=== PATIENT | male | born 1950 | race African-American/Black ===

== ENCOUNTER 2017-04-06 10:15 | Inpatient (IN) | payer OTHER ==
[~2017-04-06] VITALS: Ht 175.3 cm; Wt 66.7 kg
[~2017-04-06 10:15] MED LIST: AMLO10TA2 PO; ASPI325T8 PO; ATOR10TA60 PO; BRIM5DRO2 OP; LISI40TA PO; fixodent
[2017-04-27] VITALS (7 sets, daily range): BP systolic 105–145; BP diastolic 58–78
[2017-04-27] MEDS ORDERED: TV=100ml MORPHINE 5 MG, KETOROLAC 30 MG, ROPIVacaine 0.5% PF 60 ML, EPINEPH... INT ART ONE ×5 (06:00)
[2017-04-27] MEDS ORDERED: IV RINGERS,LACTATED 1000ML 1,000 ML IV SCH (07:00)
[2017-04-27] MEDS ORDERED: ONDANSETRON PF 4 MG/2 ML VIAL. IV PRN (07:00)
[2017-04-27] MEDS ORDERED: HYDROmorphone 2 MG/ML VIAL IV PRN (07:00)
[2017-04-27] MEDS ORDERED: LIDOCAINE 1% 1 ML SYRINGE. ID PRN (07:00)
[2017-04-27] MEDS ORDERED: fentaNYL PF VIAL 100 MCG/2 ML VIAL IV PRN ×3 (07:00→10:30)
[2017-04-27] MEDS ORDERED: PROCHLORPERAZINE 10 MG/2 ML VIAL. IV PRN ×2 (07:00→10:30)
[2017-04-27] MEDS ORDERED: ROCURONIUM 50 MG/5 ML VIAL. ONE (10:17)
[2017-04-27] MEDS ORDERED: LIDOCAINE 2% PF Vial for OR 5 ML VIAL. ONE (10:17)
[2017-04-27] MEDS ORDERED: FAMOTIDINE 20 MG/2 ML VIAL ONE (10:17)
[2017-04-27] MEDS ORDERED: ONDANSETRON PF 4 MG/2 ML VIAL. ONE (10:17)
[2017-04-27] MEDS ORDERED: MIDAZOLAM HCL/PF 2 MG/2 ML VIAL. ONE (10:17)
[2017-04-27] MEDS ORDERED: PROPOFOL 20 ML IV ONE (10:17)
[2017-04-27] MEDS ORDERED: fentaNYL PF VIAL 100 MCG/2 ML VIAL ONE (10:17)
[2017-04-27] MEDS ORDERED: DEXAMETHASONE SOD PHOS 20 MG/5 ML VIAL. ONE (10:17)
--- NOTE | 2017-04-27 10:20 | PDOC ---
BRIEF OPERATIVE NOTE Date: Apr 27, 2017 Pre-Op Diagnosis R hip DJD Post-Op Diagnosis same Procedure Performed R WANDA Surgeon Eva Kenyon Anesthesia Type: General Blood Loss 100mL Complications none VANESSA LAKE II, MD Apr 27, 2017 10:20
[2017-04-27] MEDS ORDERED: HYDROcodone/APAP 7.5/325MG 1 TAB TABLET PO PRN (10:30)
[2017-04-27] MEDS ORDERED: ZOLPIDEM 5 MG TABLET. PO PRN (10:30)
[2017-04-27] MEDS ORDERED: ACETAMINOPHEN 325 MG TABLET. PO PRN (10:30)
[2017-04-27] MEDS ORDERED: MORPHINE SULFATE 2 MG/ML DISP.SYRIN. IV PRN (10:30)
[2017-04-27] MEDS ORDERED: oxyCODONE/APAP 7.5/325 1 TAB TABLET PO PRN (10:30)
[2017-04-27] MEDS ORDERED: oxyCODONE/APAP 5/325 1 TAB TABLET PO PRN (10:30)
[2017-04-27] MEDS ORDERED: MORPHINE SULFATE 4 MG/ML DISP.SYRIN. IV PRN ×2 (10:30)
[2017-04-27] MEDS ORDERED: METOCLOPRAMIDE HCL 10 MG/2 ML VIAL. IV PRN (10:30)
[2017-04-27] MEDS ORDERED: DEXTROSE 50% 25 GM / 50ML DISP.SYRIN. IV PRN (10:30)
[2017-04-27] MEDS ORDERED: diphenhydrAMINE 50 MG/ML VIAL IV PRN (10:30)
[2017-04-27] MEDS ORDERED: PROCHLORPERAZINE 5 MG TABLET. PO PRN (10:30)
[2017-04-27] MEDS ORDERED: 0.9 % SODIUM CHLORIDE 10 ML DISP.SYRIN. IV PRN (10:30)
[2017-04-27] MEDS ORDERED: HYDROcodone/APAP 10/325 1 TAB TABLET PO PRN (10:30)
[2017-04-27] MEDS ORDERED: MORPHINE SULFATE 10 MG/ML VIAL. IV PRN (10:30)
[2017-04-27] MEDS ORDERED: traMADol 50 MG TABLET PO PRN (10:30)
[2017-04-27] MEDS ORDERED: CALCIUM CARBONATE 500 MG TAB.CHEW PO PRN (10:30)
[2017-04-27] MEDS ORDERED: WARF-78 PO (10:39)
[2017-04-27] MEDS: HYDROcodone/APAP 7.5/325MG 1 TAB TABLET PO PRN ×2 (10:42→14:42)
[2017-04-27] MEDS: MELOXICAM 7.5 MG TABLET PO PRN ×2 (10:43→14:42)
[2017-04-27 11:00] LABS: INR 1.1 (0.8-1.1); PROTHROMBIN TIME PATIENT 13.3 SEC (11.7-14.0)
[2017-04-27] MEDS ORDERED: PHENYLEPHRINE in 0.9% NACL PF 1 MG/10 ML DISP.SYRIN. IV ONE (11:26)
[2017-04-27] MEDS ORDERED: GLYCOPYRROLATE 1 MG/5 ML VIAL. ONE (12:16)
[2017-04-27] MEDS ORDERED: NEOSTIGMINE METHYLSULFATE 5 MG/5 ML SYRINGE. ONE (12:17)
--- NOTE | 2017-04-27 12:39 | PDOC4 ---
Operative Note Operative Note Date of surgery 04/27/2017 Surgeon: Gilbert Lake MD Ship Worker: Linh Kenyon Preoperative diagnosis: Advanced right hip degenerative joint disease Postoperative diagnosis: Same Procedure: Right total hip arthroplasty Components inserted: [employer]oley [employer] Nephew 56 mm outer diameter shell, R3, size 7 high offset anthology stem, 40 mm Oxinium head, +0. Blood loss: 100 mL Complications: None Reason for procedure line is very pleasant 67-year-old gentleman who had seen development outpatient orthopedic surgery clinic. Clinical and radiographic evidence were consistent with the above preoperative diagnosis and after failure of conservative therapies including intra-articular corticosteroids, he we had a discussion of the risks benefits and alternatives to proceeding with the above surgery and he wished to have this performed. Graft description of procedure: Patient was greeted in the preoperative area by myself for the correct extremity was marked and verified. He was taken back to the operative suite and antibiotics were started and row. Once in the OR he had successful induction with general anesthetic. He was then laid in the lateral decubitus position with the right side up. All down pressure points were padded. An axillary roll was used. He was secured to the bed with her hip positioning device. We then proceeded to prep and drape right lower extremity and hip in her usual sterile fashion including an Ioban Hartwick. After this we conducted her standard preoperative timeout. I then palpated and marked her surface anatomy and made my standard posterolateral skin incision with a scalpel and dissected subcutaneous tissue down to the level fascia with electrocautery. Bleeding was cauterized as it was encountered. I then brought in a padded Leyva grain elevator agent place his knee on this and we incised fascia in line with the skin incision and then placed the Charnley retractor. After this I pushed bursal tissue posteriorly with a lap sponge identified the quadratus and piriformis and took these down off of the proximal femur. I take the piriformis. I then incised his hip capsule in a Z-plasty type incision and tag ends of this for later repair as well. I wasn't able to dislocate the femoral head and made remy with electrocautery a reproducible landmarks at the center of his head greater and lesser trochanters and made my measurements. I then palpated begin first lesser trochanter and made a electrocautery jovanna along his neck and then made my neck cut. I delivered the femoral head from the operative field. I placed my acetabular retractors and excised the soft tissues from the medial acetabulum. I then excised the labrum and removed some osteophytes from the posterior acetabulum. I used osteotome and Ronjair for this. After this I began reaming and reamed up to the above size then impacted my cup in a position after palpating for the greater sciatic notch. I then placed a single screw into his posterior column which had excellent purchase. Prior to impacting the cup, did irrigate out his acetabulum. I then irrigated out the cup again and placed my polyethylene and impacted in position confirming that it had seated and engaged under circumferential visualization. I then removed my acetabular retractors and delivered the proximal femur and the operative field by repositioning the leg and the assistance of a proximal femoral elevator. I then used my celeste cutting osteotome and canal finding reamer followed by my lateralizing reamer. I then used a chili pepper broach and broached up to the above size, initially stopped at a 6 but this did not restore his leg length adequately set one up to the 7. After this I trialed the standard and high offset and 0 and +4 combinations and felt the above combination gave the best stability and length. I then removed all trial components and irrigated out the canal and operative field and impacted my [address] and again re-trialed the head sizes and felt the +0 gave the best overall stability and leg length. I then washed and dried Deleon taper region after re-dislocating the hip and impacted my Oxinium ball into place. The hip was then reduced after the cup was washed and dried. With the hip reduced, I repaired the capsule with #2 Ethibond in a simple interrupted fashion. The piriformis was reapproximated through drill holes. I then injected my periarticular mixture into the donavan-incisional area. The fascia was then closed with running #2 Quill. Inverted interrupted 0 Vicryl was used for the deeper subcutaneous tissue and inverted interrupted 202 0 Vicryl for the more superficial subcutaneous tissues tissue. Running 4-0 Monocryl was used for skin. Prior to accomplishing wound closure all culture were reported as correct 2. No complications. Patient tolerated surgery well. At the conclusion of the surgery, he was laid gently supine and transferred supine to the hospital bed. He was taken to the PACU in stable and extubated condition. Postop plan is to admit him to the joint premont for care and observation as well as DVT and antibiotic prophylaxis. He will receive IV pain medicine as needed and physical and occupational therapy. GILBERT LAKE II, MD Apr 27, 2017 12:39
[2017-04-27] MEDS ORDERED: SEVOFLURANE > 120 MINUTES. IH ONE (12:41)
[2017-04-27] MEDS ORDERED: SEVOFLURANE 61 TO 120 MINUTES. IH ONE (12:41)
[2017-04-27] MEDS: SENNOSIDES/DOCUSATE 8.6/50MG TABLET. PO SCH (13:00)
[2017-04-27] MEDS: fentaNYL PF VIAL 100 MCG/2 ML VIAL IV PRN ×4 (13:00→13:38)
[2017-04-27] MEDS: MORPHINE SULFATE 2 MG/ML DISP.SYRIN. IV PRN ×2 (13:07→13:20)
--- NOTE | 2017-04-27 13:39 | RAD ---
Portable pelvis, 04/27/2017: History: Postop evaluation A right total hip prosthesis has been inserted in satisfactory position. There are streaky collections of gas in the soft tissues at the right hip on a postoperative basis. There is no evidence of a retained surgical instrument, needle or radiopaque sponge on this single view.
[2017-04-27] MEDS ORDERED: WARFARIN 7.5 MG TABLET. PO ONE (16:00)
[2017-04-27] MEDS: FERROUS SULFATE 325 MG TABLET. PO SCH (17:05)
[2017-04-27] MEDS: IV DEXTROSE 5 %-0.45 % NACL 1,000 ML IV SCH ×2 (17:05→20:16)
[2017-04-27] MEDS: CELECOXIB 200 MG CAPSULE. PO SCH (22:42)
[2017-04-27] MEDS: traMADol 50 MG TABLET PO PRN (22:43)
[2017-04-28 02:44] VITALS: BP 152/82
[2017-04-28] MEDS ORDERED: MAGNESIUM HYDROXIDE 2,400 MG/30 ML ORAL.SUSP. PO PRN (06:00)
[2017-04-28 06:22] LABS: HEMOGLOBIN 11.3 g/dL (13.0-17.5)
[2017-04-28 06:32] VITALS: BP 150/75
[2017-04-28 06:35] LABS: INR 1.2 (0.8-1.1); PROTHROMBIN TIME PATIENT 14.2 SEC (11.7-14.0)
[2017-04-28] MEDS: traMADol 50 MG TABLET PO PRN ×3 (08:07→21:07)
[2017-04-28] MEDS: MULTIVITAMIN with MINERAL TABLET. PO SCH (08:07)
[2017-04-28] MEDS: CELECOXIB 200 MG CAPSULE. PO SCH ×2 (08:07→21:08)
[2017-04-28] MEDS: FERROUS SULFATE 325 MG TABLET. PO SCH ×2 (08:08→17:30)
[2017-04-28] MEDS: SENNOSIDES/DOCUSATE 8.6/50MG TABLET. PO SCH (08:08)
--- NOTE | 2017-04-28 09:04 | PDOC ---
ORTHO PROGRESS NOTES Subjective He feels like his pain is controlled. He was up and walking yesterday. No bowel or bladder complaints. No breathing difficulty. Vitals Vital Signs Date Time Temp Pulse Resp B/P (MAP) Pulse Ox O2 Delivery O2 Flow Rate FiO2 04/28/17 06:32 97.3 73 18 150/75 (100) 95 Room Air 97.3 04/27/17 13:07 10.0 Labs Laboratory Tests Test 04/27/17 10:10 04/28/17 06:15 Prothrombin Time 13.3 SEC (11.7-14.0) 14.2 SEC (11.7-14.0) Prothromb Time International Ratio 1.1 (0.8-1.1) 1.2 (0.8-1.1) Activated Partial Thromboplast Time 36 SEC (24-38) Hemoglobin 11.3 g/dL (13.0-17.5) Hematocrit 34.0 % (39.0-53.0) Mean Corpuscular Hemoglobin Concent 33 g/dL (31-37) Laboratory Tests Test 04/27/17 10:10 04/28/17 06:15 Prothrombin Time 13.3 SEC (11.7-14.0) 14.2 SEC (11.7-14.0) Prothromb Time International Ratio 1.1 (0.8-1.1) 1.2 (0.8-1.1) Activated Partial Thromboplast Time 36 SEC (24-38) Hemoglobin 11.3 g/dL (13.0-17.5) Hematocrit 34.0 % (39.0-53.0) Mean Corpuscular Hemoglobin Concent 33 g/dL (31-37) X-Rays x-ray reviewed Notes He is awake and alert and sitting in a chair. Eating breakfast. Incision is clean dry and intact. He can wiggle his toes, normal sensation distally. Toes are warm. Assessment and Plan I think he is doing well. I did discuss with him that the goal should be to be discharged tomorrow afternoon. He is agreeable with this. VANESSA LAKE II, MD Apr 28, 2017 09:04
--- NOTE | 2017-04-28 13:04 | DISCH ---
DISCHARGE INSTRUCTIONS Condition on Discharge Condition on Discharge: Stable Activity After Discharge Activity Instructions for Disc: Other, see below Bathing Instructions: Shower-keep dressing dry Weight Bearing Status after Di: As tolerated Diet after Discharge Diet after Discharge: Regular Wound Incision Care Wound/Incision Care: Ice to area for comfort, Keep wound/cast CDI, Do not change dressing Contacting the after DC Call your doctor for: Concerns you may have Follow-Up Follow up with: Eva in 2wks Warfarin Follow-Up Warfarin Follow UP: per Pharmacy VANESSA LAKE II, MD Apr 28, 2017 13:04
[2017-04-28] MEDS ORDERED: BISACODYL 10 MG SUPP.RECT. PR PRN (16:00)
[2017-04-28] MEDS ORDERED: WARFARIN 5 MG TABLET. PO ONE (16:00)
[2017-04-28 17:09] VITALS: BP 122/76
[2017-04-28 19:56] VITALS: BP 123/78
--- NOTE | 2017-04-29 00:02 | ACF ---
Admission Forms Criteria PAIN MANAGEMENT [facility] Clinical Indications for Admission to Inpatient Care (Place 'X' for any and all applicable criteria): Hospital admission is needed for appropriate care of the patient because of 1 or more of the following are present (1)(2)(3)(4)(5): [ ]I. Severe pain requiring acute inpatient management as indicated by 1 or more of the following (2)(5)(10): [ ]a) Continuous or frequent (eg, every 2 to 4 hours) parenteral analgesics required [A] [ ]b) Necessity (ie, alternative approaches not effective) for analgesic regimen that can only be performed or initiated in inpatient setting [X]II. Pain causing debilitation to the point of inability to function or be supported at any other level of care [ ]III. Severe side effects from pain medications as indicated by ANY ONE of the following (12)(13)(14)(15): [ ]a) Uncontrollable seizures [ ]b) Cardiac arrhythmias of immediate concern [ ]c) Dehydration that is severe or persistent [ ]d) Vomiting that is severe or persistent [ ]e) Altered mental status that is severe or persistent [ ]f) Obstipation with inadequate GI function to maintain nutrition The original [employer] content created by [employer] has been revised. The portions of the content which have been revised are identified through the use of italic text or in bold, and [facility] has neither reviewed nor approved the modified material. All other unmodified content is copyright [employer]. Please see references footnoted in the original [facility] 2016 Admission Criteria Met?: Yes INDIGO CERNA Apr 29, 2017 00:02 VANESSA LAKE II, MD Apr 29, 2017 10:57
[2017-04-29 05:18] LABS: HEMATOCRIT 30.8 % (39.0-53.0); HEMOGLOBIN 10.5 g/dL (13.0-17.5)
[2017-04-29 05:51] LABS: INR 1.8 (0.8-1.1)
[2017-04-29 06:32] VITALS: BP 125/77
[2017-04-29] MEDS: SENNOSIDES/DOCUSATE 8.6/50MG TABLET. PO SCH (09:21)
[2017-04-29] MEDS: traMADol 50 MG TABLET PO PRN ×2 (09:21→12:59)
[2017-04-29] MEDS: FERROUS SULFATE 325 MG TABLET. PO SCH (09:21)
[2017-04-29] MEDS: MULTIVITAMIN with MINERAL TABLET. PO SCH (09:21)
[2017-04-29] MEDS: CELECOXIB 200 MG CAPSULE. PO SCH (09:21)
[2017-04-29] MEDS ORDERED: WARF3TAB7 PO (10:49)
--- NOTE | 2017-04-29 12:37 | PATHOLOGY ---
PATHOLOGY REPORT * * * * * * * * FINAL DIAGNOSIS: Femoral head, "right hip tissue": - Degeneration of cartilage consistent with degenerative joint disease. (SHA:mgzahraa; 04/29/2017) REPORT ELECTRONICALLY SIGNED BY: Alexx Adhikari M.D. DATE/TIME: 04/29/2017 12:36 * * * * * * * * GROSS PATHOLOGY: Received in formalin labeled "Shila Avalos, right hip tissue," is a femoral head measuring 5.1 x 5.1 x 7.0 cm in greatest dimensions. The articular surface is smooth to granular in appearance with a slight amount of eburnation. Sectioning the bone reveals light cleary cut surfaces. Car Blocker tissue is submitted in cassette A1, following decalcification. (CAA; 04/28/2017) INITIAL CPT CODE(S): A; 40842, 70049 Professional services [place] [facility] [place] [address] Technical services performed by [facility] at [address] [place] [address], [facility] [address] [address]. SPECIMEN(S) RECEIVED: A.Right hip tissue CLINICAL HISTORY: Right hip OA PATIENT: SHILA AVALOS /AGE: 6 1950 (Age: 67) PATIENT #: [id number] ALT CASE #: SPECIMEN COLLECTION DATE: 04/27/2017 SPECIMEN RECEIVED DATE: 04/27/2017 [facility] - [address] [place] [address] - PHONE: [phone] * * * END OF REPORT * * *
[2017-04-29] MEDS ORDERED: WARFARIN 3 MG TABLET. PO ONE (14:00)
[2017-04-29 14:52] VITALS: BP 116/72
--- NOTE | 2017-04-29 20:41 | PDOC ---
ORTHO PROGRESS NOTES Subjective Little more pain today, but doing well Vitals Vital Signs Date Time Temp Pulse Resp B/P (MAP) Pulse Ox O2 Delivery O2 Flow Rate FiO2 04/29/17 14:52 98.1 77 18 116/72 (87) 98 Room Air 98.1 Labs Laboratory Tests Test 04/28/17 06:15 04/29/17 04:25 Hemoglobin 11.3 g/dL (13.0-17.5) 10.5 g/dL (13.0-17.5) Hematocrit 34.0 % (39.0-53.0) 30.8 % (39.0-53.0) Mean Corpuscular Hemoglobin Concent 33 g/dL (31-37) 34 g/dL (31-37) Prothrombin Time 14.2 SEC (11.7-14.0) 20.0 SEC (11.7-14.0) Prothromb Time International Ratio 1.2 (0.8-1.1) 1.8 (0.8-1.1) Laboratory Tests Test 04/29/17 04:25 Hemoglobin 10.5 g/dL (13.0-17.5) Hematocrit 30.8 % (39.0-53.0) Mean Corpuscular Hemoglobin Concent 34 g/dL (31-37) Prothrombin Time 20.0 SEC (11.7-14.0) Prothromb Time International Ratio 1.8 (0.8-1.1) Notes A and A sitting in chair diressing dry remains NVI RLE Assessment and Plan home today PT tomorrow as outpatient f/u 2 wks VANESSA LAKE II, MD Apr 29, 2017 20:41
--- NOTE | 2017-05-01 10:32 | PDOC3 ---
Discharge Summary Visit Information Date of Admission: Apr 27, 2017 Date of Discharge: Apr 29, 2017 Admitting Diagnosis: advanced right hip degenerative joint disease Brief Hospital Course Allergies Allergies Coded Allergies Type Severity Reaction Last Updated Verified No Known Drug Allergies 12/19/15 No Brief Hospital Course Mr. Avalos is a 67 old male who presented to my outpatient orthopedic surgery clinic with complaints of severe and progressive pain that failed conservative therapies including injections. We had a discussion of the risks, benefits, alternatives to total hip arthroplasty and he elected to proceed. He tolerated surgery well cover well from anesthesia in the PACU. He was then taken to the joint Center for care and observation. He did receive PT, OT, DVT and antibiotic prophylaxis. He recovered well from surgery and remained hemodynamically stable and afebrile throughout the hospitalization. Pain was controlled on oral pain medicine at the time of discharge. Good progress was made with therapy throughout the hospitalization, and activities of daily living were accomplished by the patient. The incision was clean dry and intact and the operative extremity had normal motor and sensation. Discharge Information Condition at Discharge: Stable Follow Up: Weeks Disposition/Orders: D/C to Home Scheduled Amlodipine Besylate (Amlodipine Besylate), 10 MG PO DAILY, (Reported) Atorvastatin Calcium (Atorvastatin Calcium), 1 TAB PO DAILY Lisinopril (Lisinopril), 1 TAB PO DAILY, (Reported) Warfarin Sodium (Warfarin Sodium), 1 TAB PO DAILY16, (Reported) Miscellaneous Medications Brimonidine Tartrate/Timolol (Combigan Eye Drops), 5 ML OP, (Reported) Patient Instructions Patient Instructions He will be discharged home. We will get him started on outpatient therapy as soon as we are able. The patient will be on Coumadin for a month. He can weight-bear as tolerated. Worrisome signs and symptoms that should prompt a phone call to my office were discussed. We'll see him back in 2 weeks, sooner should a problem arise. VANESSA LAKE II, MD May 01, 2017 10:32
== END 2017-04-29 15:00 | disposition home or self-care (01) | DRG 470 ==
LOC: OPSVCIP 04-27 09:41 → 4 SOUTHEST 04-27 14:10
PROVIDERS: ADMIT Orthopaedic Surgery Sports Medicine; ATTEND Orthopaedic Surgery Sports Medicine
PROC: 0SR904Z Replacement of Right Hip Joint with Ceramic on Polyethylene Synthetic Substitute, Open Approach (ICD-10-PCS; principal; 2017-04-27 11:45)
DX: M16.11 Unilateral primary osteoarthritis, right hip (principal); I10 Essential (primary) hypertension; E78.5 Hyperlipidemia, unspecified; Z86.73 Personal history of transient ischemic attack (TIA), and cerebral infarction without residual deficits
CPT/HCPCS: 36415; 72170; 85014; 85018; 85610; 85730; 86850; 86900; 86901; 88304; 88311; A6539; C1713; J0171; J0690; J1100; J1885; J2001; J2250; J2270; J2370; J2405; J2704; J2710; J2795; J3010; J3490; J7030; J7120; S0028; 97110; 97116; 97150; 97530; 97535

== ENCOUNTER → 2017-04-13 | Outpatient (CLI) | payer OTHER ==
[2016-08-15 11:06] VITALS: BP 145/78
[2017-04-13 08:56] LABS: BASO % 1 % (0-3); EOS % 7 % (0-3); HEMATOCRIT 40.5 % (39.0-53.0); HEMOGLOBIN 13.3 g/dL (13.0-17.5); LYMPH # 1.4 x10^3/uL (1.0-4.8); LYMPH % 32 % (24-48); MEAN CORPUSCULAR HEMOGLOBIN 30 pg (25-35); MEAN CORPUSCULAR HGB CONC 33 g/dL (31-37); MEAN CORPUSCULAR VOLUME 91 fL (79-100); MONO % 11 % (0-9); NEUT % 50 % (31-73); PLATELET COUNT 234 x10^3/uL (140-400); RED BLOOD COUNT 4.46 x10^6/uL (4.30-5.70); RED CELL DISTRIBUTION WIDTH 12.6 % (11.5-14.5); WHITE BLOOD COUNT 4.5 x10^3/uL (4.0-11.0)
[2017-04-13 09:05] LABS: PROTHROMBIN TIME PATIENT 12.2 SEC (11.7-14.0)
[2017-04-13 09:42] LABS: BILIRUBIN,URINE NEGATIVE (NEG); GLUCOSE,URINE NEGATIVE (NEG); NITRITE,URINE NEGATIVE (NEG); PROTEIN,URINE NEGATIVE (NEG-TRACE); UROBILINOGEN,URINE 0.2 mg/dL (0.2 mg/dL)
[2017-04-13 10:01] LABS: BACTERIA,URINE 0 /HPF (0-FEW); RBC,URINE 0 /HPF (0-2); SQUAMOUS EPITHELIAL CELL,UR OCC /LPF; WBC,URINE 0 /HPF (0-4)
--- NOTE | 2017-04-13 12:21 | EKG ---
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
[2017-04-13 12:32] LABS: ALBUMIN 3.8 g/dL (3.4-5.0); CALCIUM 9.5 mg/dL (8.5-10.1); TOTAL BILIRUBIN 0.3 mg/dL (0.2-1.0); TOTAL PROTEIN 7.5 g/dL (6.4-8.2)
[2017-04-13 12:34] LABS: CREATININE 0.9 mg/dL (0.7-1.3); GFR 102.5; POTASSIUM 3.9 mmol/L (3.5-5.1)
--- NOTE | 2017-04-13 13:44 | RAD ---
Indication: Preop for joint replacement surgery on the right hip. Time of exam 12:47 PM Comparison is made with prior chest from 12/19/2015. FINDINGS: The heart size is normal. The lungs are clear. No pleural effusion or pneumothorax is identified. The pulmonary vascularity is normal. IMPRESSION: No acute abnormality detected.
== END | disposition home or self-care (01) ==
LOC: SURGPAT 13:55
PROVIDERS: ATTEND Orthopaedic Surgery Sports Medicine
DX: Z01.818 Encounter for other preprocedural examination (principal); I10 Essential (primary) hypertension
CPT/HCPCS: 36415; 71020; 80053; 81001; 85027; 85610; 85651; 85730; 87641; 93005

== ENCOUNTER → 2017-04-13 | Outpatient (CLI) | payer OTHER ==
[2016-08-15 11:06] VITALS: BP 145/78
[~2017-04-13] MED LIST changes: +WARF-78 PO; +WARF3TAB7 PO
[2017-04-13 09:16] LABS: CHOLESTEROL/HDL RATIO 2.1
== END | disposition home or self-care (01) ==
LOC: LAB 13:49
PROVIDERS: ATTEND Family Medicine
DX: Z12.5 Encounter for screening for malignant neoplasm of prostate (principal); M16.11 Unilateral primary osteoarthritis, right hip; Z96.641 Presence of right artificial hip joint
CPT/HCPCS: 36415; 80061; G0103

== ENCOUNTER → 2021-01-11 | Day surgery (SDC) | payer OTHER ==
[~2021-01-11] MED LIST changes: +AMLO-187 PO; -AMLO10TA2 PO; +IV RINGERS,LACTATED 1000ML 1,000 ML IV SCH; +LIDOCAINE 2% PF 5 ML VIAL. ONE; +LISI-130 PO; -LISI40TA PO; +PROPOFOL 10 MG/ML (20ML) VIAL. IV ONE; -WARF-78 PO; +WARF3TAB50 PO; -WARF3TAB7 PO; +WARF5TAB2 PO
[2021-01-11 09:10] VITALS: BP 138/79
== END | disposition home or self-care (01) ==
LOC: ENDOS 07:21
PROVIDERS: ATTEND Internal Medicine Gastroenterology
DX: Z12.11 Encounter for screening for malignant neoplasm of colon (principal); K64.0 First degree hemorrhoids; K57.30 Diverticulosis of large intestine without perforation or abscess without bleeding; E78.00 Pure hypercholesterolemia, unspecified; I10 Essential (primary) hypertension; M19.90 Unspecified osteoarthritis, unspecified site; Z87.891 Personal history of nicotine dependence; Z79.899 Other long term (current) drug therapy; Z98.890 Other specified postprocedural states; Z20.822 Contact with and (suspected) exposure to COVID-19
CPT/HCPCS: 45378; 87426; C9803; J2704; U0003